=== PATIENT | male | born 1955 | race Caucasian/White ===

== ENCOUNTER 2019-11-13 08:31 | Outpatient (CLI) | payer MEDICARE ==
[~2019-11-13] VITALS: Ht 172.7 cm; Wt 79.4 kg
[2019-11-13] MEDS ORDERED: albuterol 2.5 MG/3 ML nebule NEB PRN (09:05)
== END 2019-11-13 23:59 | disposition home or self-care (01) ==
LOC: RT 08:31
PROVIDERS: ATTEND Internal Medicine
DX: J98.4 Other disorders of lung (principal); R06.02 Shortness of breath
CPT/HCPCS: 94060; 94727; 94729; 94760

== ENCOUNTER 2020-05-24 07:02 | Outpatient (CLI) | payer MEDICARE | END 2020-05-24 23:59 | disposition home or self-care (01) | LOC: RT 07:02 | PROVIDERS: ATTEND Internal Medicine | DX: R06.02 Shortness of breath (principal) | CPT/HCPCS: 94010; 94727; 94729 ==

== ENCOUNTER → 2021-02-11 | Outpatient (CLI) | payer MEDICARE | END | disposition home or self-care (01) | LOC: RT 13:31 | DX: R06.02 Shortness of breath (principal) | CPT/HCPCS: 94010; 94618; 94727; 94729 ==

== ENCOUNTER 2021-03-09 10:04 | Day surgery (SDC) | payer MEDICARE ==
[2021-03-08 11:00] LABS: BASOPHILS # (AUTO) 0.1 X10'3 (0-0.2); BASOPHILS % (AUTO) 0.8 % (0-1); EOSINOPHILS # (AUTO) 0.1 X10'3 (0-0.9); EOSINOPHILS % (AUTO) 1.1 % (0-6); HEMOGLOBIN 14.1 g/dl (14.0-17.9); LYMPHOCYTES % (AUTO) 27.1 % (21-51); MEAN CORPUSCULAR HEMOGLOBIN 29.9 PG (27.0-31.0); MEAN CORPUSCULAR HGB CONC 32.9 g/dL (33.0-36.5); MEAN PLATELET VOLUME 7.4 FL (7.4-10.4); MONOCYTES # (AUTO) 0.8 X10'3 (0-0.9); NEUTROPHILS # (AUTO) 4.4 X10'3 (1.8-7.7); PLATELET COUNT 220 X10'3 (140-440); RED BLOOD COUNT 4.72 X10'6 (4.70-6.10); RED CELL DISTRIBUTION WIDTH 14.8 % (11.5-14.5); WHITE BLOOD COUNT 7.3 X10'3 (4.5-11.0)
[2021-03-08 11:12] LABS: PARTIAL THROMBOPLASTIN TIME 27 SECONDS (22-32)
[2021-03-08 11:15] LABS: ALANINE AMINOTRANSFERASE 73 U/L (12-78); ALBUMIN 3.5 G/DL (3.4-5.0); ALBUMIN/GLOBULIN RATIO 0.9 (1.1-1.5); ALKALINE PHOSPHATASE 180 IU/L (46-116); ANION GAP 11 (8-16); ASPARTATE AMINO TRANSFERASE 28 U/L (10-37); BILIRUBIN,TOTAL 0.7 MG/DL (0.1-1.0); BLOOD UREA NITROGEN 11 MG/DL (7-18); BUN/CREATININE RATIO 17.2 (5.4-32.0); CALCIUM 8.8 MG/DL (8.5-10.1); CHLORIDE 106 MMOL/L (99-107); CREATININE 0.64 MG/DL (0.60-1.10); GLUCOSE 83 MG/DL (70-104); POTASSIUM 3.7 MMOL/L (3.5-5.1); SODIUM 144 MMOL/L (135-145); TOTAL CARBON DIOXIDE 27.5 MMOL/L (24-32); TOTAL PROTEIN 7.5 G/DL (6.4-8.2); eGFR > 90 ML/MIN
[~2021-03-09] VITALS: Ht 172.7 cm; Wt 84.9 kg
[2021-03-09] VITALS (11 sets, daily range): BP systolic 112–152; BP diastolic 61–77
[2021-03-09] MEDS ORDERED: nitroGLYCERIN 0.4mg SUBLingual tab SL PRN ×2 (10:40→14:00)
[2021-03-09] MEDS ORDERED: diphenhydrAMINE 25mg capsule PO PRN (10:40)
[2021-03-09] MEDS ORDERED: LORazepam 0.5 MG tablet PO PRN (10:40)
[2021-03-09] MEDS ORDERED: normal saline 1,000 ML IV SCH (10:40)
[2021-03-09] MEDS ORDERED: NINT150C PO (10:42)
[2021-03-09] MEDS ORDERED: OMEP-50 PO (10:44)
[2021-03-09] MEDS ORDERED: PRE5T PO (10:44)
[2021-03-09] MEDS ORDERED: ORENCIA (10:48)
[2021-03-09] MEDS ORDERED: MULT-1085 PO (10:48)
[2021-03-09] MEDS ORDERED: TYLENOL PO (10:48)
[2021-03-09] MEDS ORDERED: midazolam 1 mg/ML 2ml injection ONE (12:10)
[2021-03-09] MEDS ORDERED: fentaNYL/PF 50MCG/1 ML 2ML syringe ONE (12:10)
[2021-03-09] MEDS ORDERED: iohexol 350 MG/ML 50ML vial IV ONE ×2 (12:11→13:05)
[2021-03-09] MEDS ORDERED: LIDOcaine 1% (10mg/ml)w/preservative injection 20ml MDV ONE (12:11)
[2021-03-09] MEDS ORDERED: iohexol 350MG/ML 100ml bottle IV ONE (12:11)
[2021-03-09] MEDS ORDERED: proCHLORperazine 10 MG/2 ml inj ONE (12:39)
[2021-03-09 13:39] LABS: ISTAT HGB ART 12.9 g/dl (14.0-18.0); ISTAT Hct ART 38 %PCV (42-52); ISTAT O2 SATURATION ARTERIAL 96 % (95-98); ISTAT SOURCE ART
[2021-03-09] MEDS ORDERED: proCHLORperazine 10 MG/2 ml inj IV PRN (14:00)
[2021-03-09] MEDS ORDERED: OXAZEpam 15mg capsule PO PRN (14:00)
[2021-03-09] MEDS ORDERED: HYDROcodone/acetaminophen 10/325mg tab PO PRN (14:00)
[2021-03-09] MEDS ORDERED: HYDROcodone/acetaminophen 5mg/325mg tablet PO PRN (14:00)
[2021-03-09] MEDS ORDERED: ondansetron/PF 4mg/2ml inj IV PRN (14:00)
[2021-03-09 15:22] LABS: ISTAT Hct MIX 38 %PCV (42-52); ISTAT O2 SATURATION MIX VENOUS 74 % (60-80); ISTAT SOURCE VEN
== END 2021-03-09 19:50 | disposition home or self-care (01) ==
LOC: SSTAY O 10:04
PROVIDERS: ATTEND Internal Medicine Cardiovascular Disease
DX: R94.39 Abnormal result of other cardiovascular function study (principal); I25.10 Atherosclerotic heart disease of native coronary artery without angina pectoris; I27.20 Pulmonary hypertension, unspecified; E78.5 Hyperlipidemia, unspecified; J44.9 Chronic obstructive pulmonary disease, unspecified; Z79.01 Long term (current) use of anticoagulants; Z96.653 Presence of artificial knee joint, bilateral; Z87.891 Personal history of nicotine dependence; Z79.899 Other long term (current) drug therapy
CPT/HCPCS: 36415; 71046; 80053; 82803; 85014; 85025; 85610; 85730; 93005; 93460; 93567; 99152; 99153; C1760; C1769; J0780; J1644; J2001; J2250; J3010; J7030; Q0163; Q9967; 93458; A4620; A6258; C1751

== ENCOUNTER 2021-03-15 12:29 | Outpatient (CLI) | payer MEDICARE ==
[~2021-03-15 12:29] MED LIST: MULT-1085 PO; NINT150C PO; OMEP-50 PO; ORENCIA; PRE5T PO; TYLENOL PO
== END 2021-03-15 23:59 | disposition home or self-care (01) ==
LOC: VAS 12:29
PROVIDERS: ATTEND Internal Medicine Cardiovascular Disease
DX: S30.201A Contusion of unspecified external genital organ, male, initial encounter (principal); R22.40 Localized swelling, mass and lump, unspecified lower limb; Y84.0 Cardiac catheterization as the cause of abnormal reaction of the patient, or of later complication, without mention of misadventure at the time of the procedure
CPT/HCPCS: 93926

== ENCOUNTER 2021-12-16 08:34 | Outpatient (CLI) | payer MEDICARE ==
[~2021-12-16 08:34] MED LIST changes: -OMEP-50 PO; +OMEP20CA16 PO
== END 2021-12-16 23:59 | disposition home or self-care (01) ==
LOC: RT 08:34
DX: R06.02 Shortness of breath (principal); Z79.82 Long term (current) use of aspirin; Z79.899 Other long term (current) drug therapy; Z87.891 Personal history of nicotine dependence
CPT/HCPCS: 94010; 94618; 94727; 94729

== ENCOUNTER 2023-06-20 06:01 | Inpatient (IN) | payer MEDICARE ==
[2023-06-20] VITALS (11 sets, daily range): BP systolic 122–130; BP diastolic 58–66; PULSE 71–96; RESP 14–36; TEMP 97.4–97.8; O2SAT 98–99
[~2023-06-20] VITALS: Ht 172.7 cm; Wt 66.0 kg
[2023-06-20] MEDS ORDERED: dexamethasone sod phosphate 10mg/ml inj IV STA (06:33)
[2023-06-20] MEDS ORDERED: ipratropium/albuterol 3ml nebule NEB ONE (06:35)
[2023-06-20 07:02] LABS: BASOPHILS # (AUTO) 0.1 X10'3 (0-0.2); EOSINOPHILS % (AUTO) 0 % (0-6); LYMPHOCYTES # (AUTO) 0.4 X10'3 (1.1-4.8); LYMPHOCYTES % (AUTO) 1.5 % (21-51); MONOCYTES # (AUTO) 1.7 X10'3 (0-0.9); MONOCYTES % (AUTO) 6.4 % (2-12)
[2023-06-20 07:03] LABS: BASOPHILS % (AUTO) 0.2 % (0-1); HEMATOCRIT 44.6 % (42.0-52.0); HEMOGLOBIN 14.9 g/dl (14.0-17.9); MEAN CORPUSCULAR HEMOGLOBIN 29.6 PG (27.0-31.0); MEAN CORPUSCULAR HGB CONC 33.5 g/dL (33.0-36.5); MEAN CORPUSCULAR VOLUME 88.3 FL (78-98); MEAN PLATELET VOLUME 7.2 FL (7.4-10.4); NEUTROPHILS # (AUTO) 23.6 X10'3 (1.8-7.7); NEUTROPHILS % (AUTO) 91.9 % (42-75); PLATELET COUNT 352 X10'3 (140-440); RED BLOOD COUNT 5.05 X10'6 (4.70-6.10); RED CELL DISTRIBUTION WIDTH 13.7 % (11.5-14.5)
[2023-06-20 07:12] LABS: ALANINE AMINOTRANSFERASE 31 U/L (12-78); ALBUMIN 2.3 G/DL (3.4-5.0); ALBUMIN/GLOBULIN RATIO 0.4 (1.1-1.5); ALKALINE PHOSPHATASE 170 IU/L (46-116); ANION GAP 14 (8-16); ASPARTATE AMINO TRANSFERASE 22 U/L (10-37); BILIRUBIN,TOTAL 1.6 MG/DL (0.1-1.0); BLOOD UREA NITROGEN 13 MG/DL (7-18); BUN/CREATININE RATIO 15.7 (10.0-20.0); CALCIUM 9.7 MG/DL (8.5-10.1); CHLORIDE 93 MMOL/L (99-107); CREATININE 0.83 MG/DL (0.60-1.10); GLUCOSE 112 MG/DL (70-104); POTASSIUM 3.9 MMOL/L (3.5-5.1); SODIUM 130 MMOL/L (135-145); TOTAL CARBON DIOXIDE 23.2 MMOL/L (24-32); TOTAL PROTEIN 7.8 G/DL (6.4-8.2); eCRCL 78 ML/MIN; eGFR > 90 ML/MIN
[2023-06-20 07:14] LABS: WHITE BLOOD COUNT 25.7 X10'3 (4.5-11.0)
[2023-06-20 07:19] LABS: PRO BRAIN NATRIURETIC PEPTIDE 2652 PG/ML (0-125)
[2023-06-20 07:41] LABS: PLATELET ESTIMATE NORMAL; TOTAL CELLS COUNTED 100
[2023-06-20] MEDS ORDERED: normal saline 1000ML IV soln IVB ONE (09:20)
[2023-06-20] MEDS ORDERED: methylPREDNISolone sod succ 125mg/2ml vial IV ONE (09:25)
[2023-06-20] MEDS ORDERED: normal saline 250 ML IV soln IV ONE ×2 (09:25→09:50)
[2023-06-20] MEDS ORDERED: CefTRIAXone 2gm/D5W 50ml BAG 50 ML IV ONE (09:30)
[2023-06-20] MEDS ORDERED: albuterol 2.5 MG/3 ML nebule NEB PRN (11:05)
[2023-06-20] MEDS ORDERED: HYDROcodone/acetaminophen 10/325mg tab PO PRN (11:05)
[2023-06-20] MEDS ORDERED: HYDROcodone/acetaminophen 5mg/325mg tablet PO PRN (11:05)
[2023-06-20] MEDS ORDERED: magnesium 4gm in 100ml NS 100 ML IV PRN (11:05)
[2023-06-20] MEDS ORDERED: potassium Cl 40MEQ/1/2NS 520ml 520 ML IV PRN (11:05)
[2023-06-20] MEDS ORDERED: PERFLUTREN PROTEIN-A MICROSPHR (Optison) 0.22 MG/ML 3ML VIAL IV ONE (11:05)
[2023-06-20] MEDS ORDERED: azithromycin 250mg tablet PO ONE (11:05)
[2023-06-20] MEDS ORDERED: magnesium 2GM in 50ml NS 50 ML IV PRN (11:05)
[2023-06-20] MEDS ORDERED: mag hydrox/Alum hydrox/simeth 30ml oral suspension PO PRN (11:05)
[2023-06-20] MEDS ORDERED: potassium Cl 20 mEq SR tablet PO PRN ×2 (11:05)
[2023-06-20] MEDS ORDERED: magnesium hydroxide 30ml (MOM) UD suspension PO PRN (11:05)
[2023-06-20] MEDS ORDERED: acetaminophen 325mg tablet PO PRN ×2 (11:05)
[2023-06-20] MEDS ORDERED: ondansetron/PF 4mg/2ml inj IV PRN (11:05)
[2023-06-20] MEDS: methylPREDNISolone sod succ 125mg/2ml vial IV SCH ×2 (13:06→21:34)
[2023-06-20 14:50] LABS: BILIRUBIN,URINE SMALL (Neg); CLARITY,URINE SLIGHTLY CLOUDY (Clear); COLOR,URINE YELLOW (Yellow); GLUCOSE, URINE NEGATIVE (Neg); KETONES,URINE >=80 mg/dl (Neg); LEUKOCYTE ESTERASE ,URINE NEGATIVE (Neg); NITRITES, URINE NEGATIVE (Neg); OCCULT BLOOD,URINE NEGATIVE (Neg); PH,URINE 5.5 (4.8-8.0); PROTEIN,URINE TRACE mg/dl (Neg); UROBILINOGEN,URINE 0.2 E.U/dL (0.2-1.0)
[2023-06-20 14:53] LABS: UA COLLECTION TYPE CLN CATCH MIDSTREAM
[2023-06-20] MEDS: ipratropium/albuterol 3ml nebule NEB SCH ×3 (14:57→23:09)
[2023-06-20 14:58] LABS: SQUAMOUS EPITHELIAL CELL,UR FEW /LPF (FEW); TRANSITIONAL EPI CELLS,URINE MODERATE /HPF
[2023-06-20 14:59] LABS: FINE GRANULAR CAST 0-3 /LPF (NEGATIVE)
[2023-06-20 15:01] LABS: BACTERIA,URINE FEW /HPF (Neg); RBC,URINE 0-2 /HPF (0-2); WBC,URINE 0-4 /HPF (0-4)
[2023-06-20 15:04] LABS: CAL OXALATE CRYSTALS FEW /HPF (NEGATIVE)
[2023-06-20] MEDS ORDERED: ASPI81TA52 PO (19:49)
[2023-06-20] MEDS: docusate sod 100mg capsule PO SCH (20:00)
[2023-06-20] MEDS: K and/or MAG REPLACEMENT MC SCH (20:00)
[2023-06-20] MEDS: enoxaparin 40mg/0.4ml syringe SQ SCH (21:37)
[2023-06-21] VITALS (15 sets, daily range): BP systolic 106–122; BP diastolic 61–76; PULSE 63–86; RESP 16–36; TEMP 97.1–97.5; O2SAT 95–99
[2023-06-21 06:46] LABS: BASOPHILS % (AUTO) 0.1 % (0-1); EOSINOPHILS % (AUTO) 0 % (0-6); HEMOGLOBIN 11.9 g/dl (14.0-17.9); LYMPHOCYTES # (AUTO) 0.6 X10'3 (1.1-4.8); LYMPHOCYTES % (AUTO) 3.1 % (21-51); MEAN CORPUSCULAR HEMOGLOBIN 29.1 PG (27.0-31.0); MEAN CORPUSCULAR HGB CONC 33.1 g/dL (33.0-36.5); MEAN CORPUSCULAR VOLUME 87.8 FL (78-98); MEAN PLATELET VOLUME 7.2 FL (7.4-10.4); MONOCYTES # (AUTO) 0.7 X10'3 (0-0.9); NEUTROPHILS % (AUTO) 92.8 % (42-75); PLATELET COUNT 397 X10'3 (140-440); RED CELL DISTRIBUTION WIDTH 13.7 % (11.5-14.5); WHITE BLOOD COUNT 18.4 X10'3 (4.5-11.0)
[2023-06-21 07:01] LABS: ALANINE AMINOTRANSFERASE 25 U/L (12-78); ALBUMIN 1.9 G/DL (3.4-5.0); ALBUMIN/GLOBULIN RATIO 0.4 (1.1-1.5); ALKALINE PHOSPHATASE 124 IU/L (46-116); ANION GAP 10 (8-16); ASPARTATE AMINO TRANSFERASE 16 U/L (10-37); BILIRUBIN,TOTAL 0.4 MG/DL (0.1-1.0); BLOOD UREA NITROGEN 20 MG/DL (7-18); BUN/CREATININE RATIO 29.9 (10.0-20.0); CALCIUM 9.3 MG/DL (8.5-10.1); CHLORIDE 98 MMOL/L (99-107); CREATININE 0.67 MG/DL (0.60-1.10); GLUCOSE 169 MG/DL (70-104); MAGNESIUM 2.1 MG/DL (1.5-2.4); POTASSIUM 3.4 MMOL/L (3.5-5.1); SODIUM 134 MMOL/L (135-145); TOTAL CARBON DIOXIDE 26.4 MMOL/L (24-32); TOTAL PROTEIN 7.1 G/DL (6.4-8.2); eCRCL 99 ML/MIN; eGFR > 90 ML/MIN
[2023-06-21] MEDS: ipratropium/albuterol 3ml nebule NEB SCH ×5 (07:09→23:00)
[2023-06-21] MEDS: CefTRIAXone/D5W-Rocephin 1gm 50 ML IV SCH (07:19)
[2023-06-21] MEDS: methylPREDNISolone sod succ 125mg/2ml vial IV SCH ×3 (07:20→19:35)
[2023-06-21] MEDS: azithromycin 250mg tablet PO SCH (07:20)
[2023-06-21] MEDS: docusate sod 100mg capsule PO SCH ×2 (08:00→19:36)
[2023-06-21] MEDS: K and/or MAG REPLACEMENT MC SCH ×2 (08:00→19:04)
[2023-06-21] MEDS: enoxaparin 40mg/0.4ml syringe SQ SCH (19:35)
[2023-06-21] MEDS ORDERED: vancomycin inj 1,000 MG in normal saline 250ml IV soln 250 ML IV ONE (19:55)
[2023-06-21] MEDS ORDERED: vancomycin 1,750 MG in NS 350ml IV soln IV ONE (20:30)
[2023-06-22] VITALS (8 sets, daily range): BP systolic 102–138; BP diastolic 53–68; PULSE 64–88; RESP 13–20; TEMP 96.9–97.9; O2SAT 97–100
[2023-06-22 06:04] LABS: RED CELL DISTRIBUTION WIDTH 13.4 % (11.5-14.5)
[2023-06-22 06:06] LABS: BASOPHILS % (AUTO) 0.1 % (0-1); EOSINOPHILS % (AUTO) 0 % (0-6); HEMATOCRIT 36.2 % (42.0-52.0); HEMOGLOBIN 12.1 g/dl (14.0-17.9); LYMPHOCYTES # (AUTO) 0.4 X10'3 (1.1-4.8); LYMPHOCYTES % (AUTO) 2.7 % (21-51); MEAN CORPUSCULAR HEMOGLOBIN 29.6 PG (27.0-31.0); MEAN CORPUSCULAR HGB CONC 33.6 g/dL (33.0-36.5); MEAN PLATELET VOLUME 7.3 FL (7.4-10.4); MONOCYTES # (AUTO) 0.6 X10'3 (0-0.9); MONOCYTES % (AUTO) 4.2 % (2-12); NEUTROPHILS # (AUTO) 13.8 X10'3 (1.8-7.7); PLATELET COUNT 445 X10'3 (140-440); RED BLOOD COUNT 4.11 X10'6 (4.70-6.10); WHITE BLOOD COUNT 14.9 X10'3 (4.5-11.0)
[2023-06-22 06:18] LABS: ALANINE AMINOTRANSFERASE 30 U/L (12-78); ALBUMIN/GLOBULIN RATIO 0.4 (1.1-1.5); ALKALINE PHOSPHATASE 106 IU/L (46-116); ANION GAP 8 (8-16); ASPARTATE AMINO TRANSFERASE 19 U/L (10-37); BILIRUBIN,TOTAL 0.3 MG/DL (0.1-1.0); BLOOD UREA NITROGEN 21 MG/DL (7-18); BUN/CREATININE RATIO 31.3 (10.0-20.0); CALCIUM 9.4 MG/DL (8.5-10.1); CHLORIDE 103 MMOL/L (99-107); CREATININE 0.67 MG/DL (0.60-1.10); GLUCOSE 173 MG/DL (70-104); MAGNESIUM 2.3 MG/DL (1.5-2.4); SODIUM 139 MMOL/L (135-145); TOTAL PROTEIN 6.7 G/DL (6.4-8.2); eCRCL 99 ML/MIN; eGFR > 90 ML/MIN
[2023-06-22] MEDS: ipratropium/albuterol 3ml nebule NEB SCH ×3 (07:21→15:18)
[2023-06-22] MEDS: K and/or MAG REPLACEMENT MC SCH (08:00)
[2023-06-22] MEDS: docusate sod 100mg capsule PO SCH (08:00)
[2023-06-22] MEDS: methylPREDNISolone sod succ 125mg/2ml vial IV SCH ×2 (08:45→15:37)
[2023-06-22] MEDS: CefTRIAXone/D5W-Rocephin 1gm 50 ML IV SCH (08:45)
[2023-06-22] MEDS ORDERED: vancomycin/NS 1 GM ADD-VANTAGE 250 ML IV SCH (09:00)
[2023-06-22] MEDS: azithromycin 250mg tablet PO SCH (10:18)
[2023-06-22] MEDS ORDERED: IPRA3AMP9 NEB (11:29)
[2023-06-22] MEDS ORDERED: PRED20TA PO (11:29)
[2023-06-22] MEDS ORDERED: ALBU2.5V7 NEB (11:29)
[2023-06-22] MEDS ORDERED: AZIT500T9 PO (16:11)
[2023-06-23] MEDS ORDERED: VANCOMYCIN LEVEL IV ONE (07:30)
== END 2023-06-22 16:32 | disposition home or self-care (01) | DRG 871 ==
LOC: ER 06:01 → ED HOLD 11:13 → EDBEDREQ 16:11 → PCU 3S 17:54
PROVIDERS: ADMIT Family Medicine; ATTEND Family Medicine
PROC: 05HC33Z Insertion of Infusion Device into Left Basilic Vein, Percutaneous Approach (ICD-10-PCS; principal; 2023-06-22)
DX: A40.3 Sepsis due to Streptococcus pneumoniae (principal); J13 Pneumonia due to Streptococcus pneumoniae; D84.821 Immunodeficiency due to drugs; M06.9 Rheumatoid arthritis, unspecified; Z96.651 Presence of right artificial knee joint; E87.6 Hypokalemia; Z20.822 Contact with and (suspected) exposure to COVID-19; I25.10 Atherosclerotic heart disease of native coronary artery without angina pectoris; Z88.1 Allergy status to other antibiotic agents; Z88.8 Allergy status to other drugs, medicaments and biological substances; Z88.2 Allergy status to sulfonamides; Z79.899 Other long term (current) drug therapy; Z98.61 Coronary angioplasty status; Z87.891 Personal history of nicotine dependence; Z80.0 Family history of malignant neoplasm of digestive organs; Z82.49 Family history of ischemic heart disease and other diseases of the circulatory system
CPT/HCPCS: 36410; 36415; 71045; 71250; 76942; 80053; 81001; 83605; 83735; 83880; 84145; 84484; 85007; 85025; 87040; 87070; 87077; 87081; 87186; 87634; 87811; 93005; 93306; 94640; 94760; 99285; C1751; G0378; J0696; J1100; J1650; J2930; J3370; J7040; J7050